=== PATIENT | female | born 1985 | race Caucasian/White ===

== ENCOUNTER 2017-10-03 18:02 | Emergency (ER) | payer MEDICAID ==
[2017-10-03 18:02] VITALS: BMI 30.9
[2017-10-03 18:16] VITALS: RESP 18
[2017-10-03 19:10] LABS: RBC URINE 432 /hpf (0-3); URINE BACTERIA OCC (<OCC); URINE BILIRUBIN NEGATIVE (NEGATIVE); URINE BLOOD 3+ (NEGATIVE); URINE COLOR Yellow (YELLOW); URINE GLUCOSE (UA) NORMAL (Normal); URINE KETONE NEGATIVE (NEGATIVE); URINE LEUKOCYTE ESTERASE 2+ Leu/uL (Negative); URINE PROTEIN 2+ mg/dL (NEGATIVE); URINE UROBILINOGEN NORMAL mg/dL (0.2-1.0); WBC URINE 33 /hpf (0-5)
[2017-10-03] MEDS ORDERED: Sodium Chloride 0.9% 1,000 ML IV ONE (19:18)
[2017-10-03 19:30] LABS: BASO # 0.1 K/uL (0.0-0.2); BASO % 0.8 % (0.0-2.0); EOS # 0.1 K/uL (0.0-0.7); EOS % 0.9 % (0.0-4.0); HEMATOCRIT 43.1 % (34.0-47.0); LYMPH # 3.2 K/uL (1.0-4.3); MEAN CORPUSCULAR HEMOGLOBIN 29.6 pg (27.0-31.0); MEAN CORPUSCULAR HGB CONC 33.3 g/dL (33.0-37.0); MONO # 0.6 K/uL (0.0-0.8); NRBC % 0.1 % (0.0-2.0)
[2017-10-03] MEDS ORDERED: Sodium Chloride 0.9% 1,000 ML ONE (19:30)
[2017-10-03 19:42] LABS: BLOOD UREA NITROGEN 7 mg/dL (7-17); CALCIUM 8.8 mg/dl (8.6-10.4); CARBON DIOXIDE 31 mmol/L (22-30); CHLORIDE 101 mmol/L (98-107); GFR AFRICAN-AMERICAN > 60; GLUCOSE,RANDOM 86 mg/dL (65-105); POTASSIUM 3.7 mmol/L (3.6-5.2); SODIUM 141 mmol/L (132-148)
--- NOTE | 2017-10-03 23:12 | US ---
EXAM: US Pelvis Complete, Transabdominal US Pelvis, Transvaginal CLINICAL HISTORY: 32 years old, female; Pain; Pelvic pain and other: Bleeding; Prior surgery; Surgery date: 6+ months; Surgery type: C- section; Additional info: Pelvic pain, vag bleeding, beta 20 TECHNIQUE: Real-time transabdominal and transvaginal pelvic ultrasound (complete) with image documentation. Transvaginal imaging was used for better evaluation of the endometrium and adnexa. COMPARISON: No relevant prior studies available. FINDINGS: The uterus measures 9 x 3 x 5 cm. The endometrium slightly heterogeneous and measures 3 mm. There is a focal area of hypervascularity in the fundal endometrium and adjacent myometrium. There is a 1.4 cm simple cyst in the right ovary. There is a 2.2 cm simple cyst in the left ovary. Color flow and doppler vascular waveforms were demonstrated to both ovaries. IMPRESSION: Small bilateral ovarian cysts. Focal area of intense hypervascularity in the fundal endometrium and adjacent myometrium. Retained products of conception would be a possibility although the myometrium is more involved than would typically be seen. Hypervascular neoplasm including gestational trophoblastic disease would also be consideration. AVM would be within the differential diagnosis. Followup with gynecology is recommended. EXAM: US Pelvis, Transvaginal EXAM DATE/TIME: 10/03/2017 8:53 PM CLINICAL HISTORY: 32 years old, female; Pain; Pelvic pain and other: Bleeding; Prior surgery; Surgery date: 6+ months; Surgery type: C- section; Additional info: Pelvic pain, vag bleeding, beta 20 TECHNIQUE: Real-time transvaginal pelvic ultrasound (complete) with image documentation. Transvaginal imaging was used for better evaluation of the endometrium and adnexa. COMPARISON: PELVIS/TRANSVAG US 2016-02-03 14:09 FINDINGS: The uterus measures 9 x 3 x 5 cm. The endometrium slightly heterogeneous and measures 3 mm. There is a focal area of hypervascularity in the fundal endometrium and adjacent myometrium. There is a 1.4 cm simple cyst in the right ovary. There is a 2.2 cm simple cyst in the left ovary. Color flow and doppler vascular waveforms were demonstrated to both ovaries.
--- NOTE | 2017-10-03 23:26 | C.PDOC ---
History Of Present Illness Patient presents to ED c/o vaginal bleeding today after already having her period on 09/20. Patient is s/p at [facility] two months ago Jul 21 (via medication). Patient was seen by her crab fisher (at [facility]) recently in order to get IUD, however the IUD was not placed because the urine test result was ambigious. She denies fever, vomiting, dysuria/ hematuria. Time Seen by Provider: 10/03/17 18:39 Chief Complaint (Nursing): Female Genitourinary History Per: Patient History/Exam Limitations: no limitations Severity: Mild Past Medical History Reviewed: Historical Data, Nursing Documentation, Vital Signs Vital Signs: Last Vital Signs Temp 98.4 F 10/03/17 21:00 Pulse 80 10/03/17 21:00 Resp 18 10/03/17 21:00 BP 112/72 10/03/17 21:00 Pulse Ox 100 10/03/17 23:45 - Medical History PMH: No Chronic Diseases - [facility] Procedures MONITORING NOS (11/03/14) LOW CERVICAL (11/03/14) Family History: States: No Known Family Hx - Social History Hx Alcohol Use: No Hx Substance Use: No - Immunization History Hx Tetanus Toxoid Vaccination: No Hx Influenza Vaccination: No Hx Pneumococcal Vaccination: No Review Of Systems Except As Marked, All Systems Reviewed And Found Negative. Constitutional: Negative for: Fever, Chills Cardiovascular: Negative for: Chest Pain Respiratory: Negative for: Shortness of Breath Gastrointestinal: Negative for: Nausea, Vomiting, Abdominal Pain, Diarrhea Genitourinary: Positive for: Vaginal Bleeding Physical Exam - Physical Exam Appears: Well, Non-toxic, No Acute Distress Oral Mucosa: Moist Cardiovascular: Rhythm Regular Respiratory: Normal Breath Sounds, No Rales, No Rhonchi, No Wheezing Gastrointestinal/Abdominal: Normal Exam, Bowel Sounds, Soft, No Tenderness Back: No CVA Tenderness Neurological/Psych: Oriented x3 ED Course And Treatment - Laboratory Results Result Diagrams: 10/03/17 19:28 10/03/17 19:28 O2 Sat by Pulse Oximetry: 100 (RA) Pulse Ox Interpretation: Normal Progress Note: Blood work, UA, Upreg ordered and reviewed. Beta quant mildly elevated - transvaginal US ordered. Prior visits reviewed, blood type is B+. - Physician Consult Information Physician Contacted: Tomas Jason Outcome Of Conversation: Discussed patient and lab/ultrasound findings with Dr. Jason, patient can be discharged home after PO cytotec 400mg in ER. Patient to follow up with crab fisher within 1 week. Disposition Counseled Patient/Family Regarding: Studies Performed, Diagnosis, Need For Followup, Rx Given - Disposition Referrals: [facility] [Outside] Disposition: HOME/ ROUTINE Disposition Time: 23:50 Condition: STABLE Additional Instructions: FOLLOW UP WITH YOUR STOCK BUYER WITHIN 1 WEEK USE MEDICATION FOR PAIN NEEDED RETURN TO ER IF SYMPTOMS WORSEN Prescriptions: Acetaminophen with Codeine [Tylenol with Codeine #3 Tablet] 1 each PO Q6 PRN # 12 tablet PRN Reason: pain Instructions: Dysfunctional Uterine Bleeding (ED) Forms: [employer] (Bengali) Print Language: ITALIAN - POA Present On Arrival: None - Clinical Impression Clinical Impression: Retained products of conception
[2017-10-04 00:01] VITALS: BP 100/68; PULSE 64; TEMP 97.8; O2SAT 99
== END 2017-10-04 00:05 | disposition home or self-care (01) ==
LOC: C.ER 18:02
DX: O03.4 Incomplete spontaneous abortion without complication (principal)
CPT/HCPCS: 76830; 76856; 80048; 81001; 84702; 84703; 85025; 96360; 99285; J7040

== ENCOUNTER 2017-12-20 18:55 | Emergency (ER) | payer MEDICAID ==
[2017-12-20 18:55] VITALS: BMI 30.9
[2017-12-20 19:39] VITALS: BP 116/71; PULSE 97; RESP 20; TEMP 99.9; O2SAT 98
--- NOTE | 2017-12-20 21:22 | C.PDOC ---
History Of Present Illness 32 year old female presents to the ED for evaluation of sore throat and cough which began around 2-3 days ago. Patient reports sick contact with her child who has been febrile for the past week. Patient denies fever, chills, generalized body aches. Time Seen by Provider: 12/20/17 20:02 Chief Complaint (Nursing): Flu-like Symptoms History Per: Patient History/Exam Limitations: no limitations Onset/Duration Of Symptoms: Days (2-3) Current Symptoms Are (Timing): Still Present Location Of Pain: Throat Sick Contacts (Context): Family Member(s) Associated Symptoms: Sore Throat, Cough. denies: Fever, Chills Additional History Per: Patient Past Medical History Reviewed: Historical Data, Nursing Documentation, Vital Signs Vital Signs: Last Vital Signs Temp 99.9 F H 12/20/17 19:35 Pulse 97 H 12/20/17 19:35 Resp 20 12/20/17 19:35 BP 116/71 12/20/17 19:35 Pulse Ox 98 12/20/17 21:36 - Medical History PMH: No Chronic Diseases Surgical History: No Surg Hx - [facility] Procedures MONITORING NOS (11/03/14) LOW CERVICAL (11/03/14) Family History: States: Unknown Family Hx - Social History Hx Alcohol Use: No Hx Substance Use: No - Immunization History Hx Tetanus Toxoid Vaccination: No Hx Influenza Vaccination: No Hx Pneumococcal Vaccination: No Review Of Systems Constitutional: Negative for: Fever, Chills ENT: Positive for: Throat Pain Respiratory: Positive for: Cough Musculoskeletal: Negative for: Other (generalized body aches ) Physical Exam - Physical Exam Appears: Non-toxic, No Acute Distress Skin: Normal Color, Warm, Dry Head: Atraumatic, Normacephalic Eye(s): bilateral: Normal Inspection Ear(s): Bilateral: Normal Nose: Normal, No Discharge Oral Mucosa: Moist Throat: Erythema (mild), No Exudate Neck: Supple Chest: Symmetrical, No Deformity, No Tenderness Cardiovascular: Rhythm Regular, No Murmur Respiratory: Normal Breath Sounds, No Rales, No Rhonchi, No Wheezing Extremity: Normal ROM, Capillary Refill (less than 2 seconds ) Neurological/Psych: Oriented x3, Normal Speech, Normal Cognition Gait: Steady ED Course And Treatment O2 Sat by Pulse Oximetry: 98 Medical Decision Making Medical Decision Making: Tylenol PO administered. pt well appearing. d/c home with supportive measures. f/u med clinic Disposition Counseled Patient/Family Regarding: Diagnosis, Need For Followup - Disposition Referrals: [facility] [Outside] Disposition: HOME/ ROUTINE Disposition Time: 21:22 Condition: GOOD Additional Instructions: Take Tylenol or Motrin every 4-6 hoours for fever or pain. Gargle with warm salty water several times a day. Follow up in medical clinic in a few days. Return to ER for any worsening symptoms. 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 - Scribe Statement The provider has reviewed the documentation as recorded by the Scribe (Anjana Beyer) All medical record entries made by the Scribe were at my direction and personally dictated by me. I have reviewed the chart and agree that the record accurately reflects my personal performance of the history, physical exam, medical decision making, and the department course for this patient. I have also personally directed, reviewed, and agree with the discharge instructions and disposition.
== END 2017-12-20 21:34 | disposition home or self-care (01) ==
LOC: C.ER 18:55
DX: J06.9 Acute upper respiratory infection, unspecified (principal)

== ENCOUNTER 2018-09-30 11:33 | Emergency (ER) | payer MEDICAID, OTHER ==
[2018-09-30 11:33] VITALS: BMI 30.9
[2018-09-30 11:45] VITALS: TEMP 98.6; O2SAT 98
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
[2018-09-30] MEDS ORDERED: Lidocaine 5% Patch TD STA (12:12)
[2018-09-30] MEDS ORDERED: Lidocaine 5% Patch TD ONE (12:22)
--- NOTE | 2018-09-30 13:00 | RAD ---
HISTORY: TRAUMA COMPARISON: No prior. TECHNIQUE: Chest PA and lateral FINDINGS: LUNGS: No focal consolidation. Please note that chest x-ray has limited sensitivity for the detection of pulmonary masses. PLEURA: No significant pleural effusion identified. No definite pneumothorax . CARDIOVASCULAR: The cardiomediastinal silhouette appears within normal limits of size. No atherosclerotic calcification present. OSSEOUS STRUCTURES: No acute osseous abnormality identified. VISUALIZED UPPER ABDOMEN: Unremarkable. OTHER FINDINGS: None. IMPRESSION: No acute findings identified.
--- NOTE | 2018-09-30 13:18 | CT ---
Date of service: 09/30/2018 PROCEDURE: CT HEAD WITHOUT CONTRAST. HISTORY: TRAUMA COMPARISON: None available. TECHNIQUE: Axial computed tomography images were obtained through the head/brain without intravenous contrast. Radiation dose: Total exam DLP = 1054.15 mGy-cm. This CT exam was performed using one or more of the following dose reduction techniques: Automated exposure control, adjustment of the mA and/or kV according to patient size, and/or use of iterative reconstruction technique. FINDINGS: HEMORRHAGE: No intracranial hemorrhage. BRAIN: No mass effect or edema. No atrophy or chronic microvascular ischemic changes. VENTRICLES: No hydrocephalus. CALVARIUM: Unremarkable. PARANASAL SINUSES: Unremarkable as visualized. No significant inflammatory changes. MASTOID AIR CELLS: Unremarkable as visualized. No inflammatory changes. OTHER FINDINGS: None. IMPRESSION: No acute intracranial pathology identified.
--- NOTE | 2018-09-30 13:26 | CT ---
Date of service: 09/30/2018 CT cervical spine without IV contrast Indication: Trauma Comparison: None available Technique: Axial computed tomography images were obtained of the cervical spine without the use of intravenous contrast. Coronal and sagittal reformatted images were created and reviewed. This CT exam was performed using 1 or more of the following dose reduction techniques: Automated exposure control, adjustment of the MAA and/or kV according to patient size, and/or use of iterative reconstruction technique. Radiation dose: Total exam DLP = 422.8 mGy-cm. Findings: Straightening of the normal cervical lordosis may be related to muscle spasm or positioning. There is no evidence of acute fracture or subluxation. There is preserved alignment, vertebral body height, intervertebral disc spaces. The prevertebral soft tissues and spinolaminar lines appear intact. The lateral masses are preserved. The dens tip is intact. There is proper alignment of the lateral masses of C1 with the C2 vertebral body. Included portions of the thyroid gland appear heterogeneous. Included portions of lung apices appear clear. Impression: Straightening of the normal cervical lordosis may be related to muscle spasm or positioning. No evidence of acute fracture or subluxation. Heterogeneous appearance of the included portions thyroid gland.
[2018-09-30 14:08] VITALS: BP 119/71; PULSE 68; RESP 18
== END 2018-09-30 14:00 | disposition home or self-care (01) ==
LOC: C.ER 11:33
DX: S29.012A Strain of muscle and tendon of back wall of thorax, initial encounter (principal); V49.40XA Driver injured in collision with unspecified motor vehicles in traffic accident, initial encounter; R51 Headache
CPT/HCPCS: 70450; 71046; 72125; 96372; 99284; J1885